=== PATIENT | female | born 1945 | race Two or more races ===

== ENCOUNTER → 2023-12-03 11:56 | Outpatient (CLI) | payer OTHER | END | disposition home or self-care (01) | LOC: EKG 11:56 | PROVIDERS: ATTEND Obstetrics & Gynecology Gynecology | DX: I10 Essential (primary) hypertension (principal) ==

== ENCOUNTER 2023-12-29 07:33 | Outpatient (CLI) | payer OTHER ==
[~2023-12-29 07:33] MED LIST: ADULT LOW DOSE81 M1; GRALISE600 MG; LEVOTHYROXINE125 MC1; LOSARTAN-HCTZ1 EACH; OMEPRAZOLE20 MG; OSTERA TABLET1 EACH; OXYBUTYNIN CHLO15 MG; PEPCID AC20 MG; SULINDAC200 MG
== END 2023-12-29 07:36 | disposition home or self-care (01) ==
LOC: NUCLEAR 07:33
PROVIDERS: ATTEND Internal Medicine
DX: I20.9 Angina pectoris, unspecified (principal)
CPT/HCPCS: 78452; 93017; A9500; J0153